=== PATIENT | male | born 1940 ===

== ENCOUNTER 2018-03-01 08:10 | Inpatient (IN) | payer OTHER ==
[~2018-03-01] VITALS: Ht 165.1 cm; Wt 70.8 kg
[2018-03-01] MEDS ORDERED: TAMS0.4C PO (08:45)
[2018-03-01] MEDS ORDERED: GABAPENTIN800 MG PO (08:45)
[2018-03-01] MEDS ORDERED: RESTORIL PO (08:45)
[2018-03-01] MEDS ORDERED: COZAAR100 MG PO (08:46)
[2018-03-08] MEDS ORDERED: GABAPENTIN800 MG PO (12:49)
[2018-03-08] MEDS ORDERED: AMOX-CLAV 875-1 EACH PO (12:50)
[2018-03-08] MEDS ORDERED: DOCUSATE SODIU100 MG PO (12:50)
[2018-03-08] MEDS ORDERED: PERCOCET 5-3251 EACH PO (12:51)
[2018-03-08] MEDS ORDERED: RESTORIL30 M1 PO (12:51)
== END 2018-03-09 13:34 | disposition home or self-care (01) | DRG 460 ==
LOC: PED 03-08 05:15 → O/R 03-08 05:15 → SURG-SUITE 03-08 09:45 → PED 03-08 13:44
PROVIDERS: Orthopaedic Surgery Orthopaedic Surgery of the Spine
PROC: 0SG10AJ Fusion of 2 or more Lumbar Vertebral Joints with Interbody Fusion Device, Posterior Approach, Anterior Column, Open Approach (ICD-10-PCS; 2018-03-08)
PROC: 0ST20ZZ Resection of Lumbar Vertebral Disc, Open Approach (ICD-10-PCS; 2018-03-08)
PROC: 07DS3ZZ Extraction of Vertebral Bone Marrow, Percutaneous Approach (ICD-10-PCS; 2018-03-08)
PROC: 0SG10A0 Fusion of 2 or more Lumbar Vertebral Joints with Interbody Fusion Device, Anterior Approach, Anterior Column, Open Approach (ICD-10-PCS; principal; 2018-03-08 09:45)
DX: M47.26 Other spondylosis with radiculopathy, lumbar region (principal); M51.16 Intervertebral disc disorders with radiculopathy, lumbar region; M41.86 Other forms of scoliosis, lumbar region; I10 Essential (primary) hypertension